=== PATIENT | male | born 1995 | race Caucasian/White ===

== ENCOUNTER → 2019-04-12 09:49 | Outpatient (CLI) | payer OTHER, SELFPAY ==
--- NOTE | 2019-04-12 09:57 | US_ITS ---
STUDY: ABDOMINAL ULTRASOUND - RIGHT UPPER QUADRANT REASON FOR VISIT: Male, 23 years old ELEV LFTS TECHNIQUE: Ultrasound evaluation of the right upper quadrant was performed with real-time and static ramirez-scale imaging. TECHNICAL QUALITY: Limited. Examination limited by bowel gas. COMPARISON: None. FINDINGS: Liver: The liver measures 16.3 cm. There is increased echogenicity consistent with fatty infiltration. The bile ducts are within normal limits. There is hepatic color flow. The direction of portal flow is hepatopetal. There is no demonstrated mass lesion. Gallbladder: Normal distended gallbladder. The gallbladder wall measures 2.0 mm. There is a negative sonographic Ro''s sign. There is no pericholecystic fluid. There is a solitary gallstone measuring 1.6 cm. Common Bile Duct (C.B.D.): The common bile duct measures 3.0 mm. Pancreas: Normal size of the head, body with obscuration of the tail of the pancreas. There is normal echogenicity of the visualized pancreas. There is no demonstrated pancreatic mass or cyst. Right Kidney: Normal size of the right kidney. The right kidney measures 10.7 x 5.5 x 5.8 cm. Normal renal cortex. The right cortex measures 2.0 cm. There is no demonstrated renal mass or cyst. There is no right hydronephrosis. US/Abdomen Limited IMPRESSION: Diffuse fatty liver. Solitary gallstone with no signs of acute cholecystitis. Otherwise normal right upper quadrant ultrasound. Electronically Signed: Caterina Aden MD at 2:41 EST , Service support ,
== END ==
DX: R94.5 Abnormal results of liver function studies (principal)
CPT/HCPCS: 76705

== ENCOUNTER → 2021-03-15 20:00 | Outpatient (CLI) | payer OTHER, SELFPAY | DX: G47.30 Sleep apnea, unspecified (principal) | CPT/HCPCS: 95810 ==

== ENCOUNTER 2021-06-30 15:00 | Emergency (ER) | payer OTHER, SELFPAY ==
[2021-06-30 15:01] VITALS: BP 122/88; PULSE 134; RESP 18; TEMP 36.1; BMI 35.3
--- NOTE | 2021-06-30 16:33 | ED.VIS.GI ---
HPI HPI - GI History of Present Illness Chief Complaint: Nausea/Vomiting/Diarrhea Narrative Narrative: 26-year-old male with no significant medical history presenting with nausea, vomiting, diarrhea since about 530 this morning. Patient notes that he ate some dinner 2 days ago with cheese on it that was melted. He discovered afterwards that it was moldy. He states it is in December 2020. He felt fine yesterday. Today he has had multiple episodes of diarrhea. No black or bloody stools. He has been vomiting. Is not unable to hold on food or fluids. No exotic travel. No recent antibiotic use. Does not drink from [place] or [place]. He does not have merlene abdominal pain but describes cramping. No urinary complaints. [facility] Medical History (Updated 06/30/21 @ 16:29 by Robin Montana) Chronic lower back pain Sleep apnea Home Medications ondansetron 4 mg PO Q8H PRN #14 tab 06/30/21 [Rx Last Taken Unknown] promethazine 25 mg PO QHS PRN #14 tab 06/30/21 [Rx Last Taken Unknown] Allergy/AdvReac Type Severity Reaction Status Date / Time No Known Allergies Allergy Verified 06/30/21 15:04 Surgical History H/O hernia repair History of tonsillectomy Social History Smoking Status: Never smoker ROS ROS ED Constitutional Constitutional ED: Denies chills or fever(s) ENT ENT ED: Denies rhinorrhea or sore throat Cardiovascular Cardiovascular: Denies chest pain or palpitations Respiratory/Chest Respiratory/Chest: Denies cough or dyspnea Gastrointestinal Gastrointestinal: Reports abdominal pain, diarrhea, nausea and vomiting Genitourinary Genitourinary ED: Denies dysuria or hematuria Musculoskeletal Musculoskeletal: Denies arthralgias or myalgias Integumentary Denies rash Neurologic Neurologic: Denies headache(s) or paresthesias Psychiatric Psychiatric: Denies anxiety or depression EXAM Physical Exam Const Vital Signs: 06/30/21 15:01 06/30/21 18:50 06/30/21 20:00 Temperature 97.0 F L Temperature Source Temporal Pulse Rate 134 H 66 Respiratory Rate 18 18 16 Blood Pressure 122/88 H 122/78 H Blood Pressure Mean 99 92 Pulse Ox 98 Oxygen Delivery Method Room Air Positive well nourished General Appearance ED: NAD; Negative for pallor HEENT Reports moist mucous membranes normocephalic and atraumatic Eyes PERRL and EOMs intact bilaterally General Eye ED: Negative for pale conjunctiva or scleral icterus Neck supple Resp normal respiratory effort and clear to auscultation bilaterally Cardio regular rate and regular rhythm Neuro Sensorium / Orientation: alert, oriented to person and oriented to place Psych mental status grossly normal Skin General Skin Exam: Negative for jaundice or pallor Lesions: no lesions Rashes: no rashes MDM MDM MDM Narrative Medical decision making narrative: Patient given Zofran, Pepcid, 2 L of IV fluids. He is reevaluated at 1900 and has had some episodes of diarrhea but no more vomiting. Lab work is obtained and shows no leukocytosis. Hemoglobin slightly hemoconcentrated. Patient CBC shows no leukocytosis. He is lymphopenic. Creatinine slightly elevated 1.35 there is no comparison. ALT slightly elevated at 75 otherwise LFTs are normal. Patient reevaluated not having any more nausea or vomiting but is having diarrhea still. I will send for stool studies. 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 Covid testing and stool studies are pending. I do not believe he has C. difficile with a low white blood cell count. I did not test for this. Patient given Phenergan and Zofran for home. He feels well enough and well-hydrated at this point. He will follow up the results of his tests on the patient portal. Patient given return precautions. Impression: 1. Nausea/vomiting 2. Diarrhea 3. Possible food poisoning 4. Gastroenteritis Lab Data Attestation: I reviewed the patient's lab results. Labs: Laboratory Results - last 24 hr 06/30/21 06/30/21 16:35 16:35 WBC 8.4 RBC 5.45 Hgb 16.6 H Hct 46.8 MCV 85.9 MCH 30.5 MCHC 35.5 RDW Std Deviation 37.9 RDW Coeff of Anny 12.2 Plt Count 232 MPV 10.3 Immature Gran % (Auto) 0.100 Neut % (Auto) 86.3 H Lymph % (Auto) 6.5 L Shannon % (Auto) 6.6 Eos % (Auto) 0.4 Baso % (Auto) 0.1 Absolute Neuts (auto) 7.3 Absolute Lymphs (auto) 0.55 L Nucleated RBC % 0 Differential Comment SCANNED Sodium 133 L Potassium 4.1 Chloride 104 Carbon Dioxide 22.0 Anion Gap 7 BUN 18 Creatinine 1.35 H Estim Creat Clear Calc 87.54 Est GFR (MDRD) Af Amer 82 Est GFR (MDRD) Non-Af 67 BUN/Creatinine Ratio 13.3 Glucose 129 H Calcium 9.7 Total Bilirubin 0.80 AST 27 ALT 75 H Alkaline Phosphatase 104 Total Protein 8.1 Albumin 4.2 Globulin 3.9 Albumin/Globulin Ratio 1.1 Discharge Plan Triage Chief Complaint: Nausea/Vomiting/Diarrhea ED Provider: Jelani Griffin Dx/Rx/DC Orders Instructions: ED Food Poison Or Gastroenteritis Prescriptions: New promethazine 25 mg tablet 25 mg PO QHS PRN (Reason: nausea and vomiting) Qty: 14 RF: 0 ondansetron 4 mg tablet,disintegrating 4 mg PO Q8H PRN (Reason: nausea and vomiting) Qty: 14 RF: 0 Primary Care Provider: Elijah Street Referrals: Elijah Street MD [Primary Care Provider] - Disposition Disposition: Home, Self Care
[2021-06-30] MEDS: Ondansetron 4 MG/2 ML Vial IV (16:36)
[2021-06-30 16:44] LABS: Absolute Lymphocyte Count 0.55 X10^3/uL (0.83-4.51); Absolute Neutrophil Count 7.3 X10^3/uL (2.0-7.7); Basophil# 0.01 X10^3/uL; Basophil% 0.1 % (0-1); Eosinophil# 0.03 X10^3/uL; Eosinophils% 0.4 % (0-5); Hematocrit 46.8 % (40-54); Hemoglobin 16.6 g/dL (13.0-16.5); Lymphocyte # 0.55 X10^3/ul (0.83-4.51); Lymphocyte % 6.5 % (19-41); Mean Corp Hgb Conc 35.5 g/dL (32-36); Mean Corpuscular Hgb 30.5 pg (27.0-32.0); Mean Corpuscular Volume 85.9 fL (80-94); Mean Platelet Vol. 10.3 fl (6.2-12.0); Monocyte# 0.56 X10^3/uL; Monocyte% 6.6 % (0-10); NRBC Flagged by Analyzer 0 % (0-5); Neutrophil # 7.28 X10^3/uL (2.7-7.7); Neutrophil % 86.3 % (47-70); POSITIVE DIFFERENTIAL YES; Platelet Count 232 K/mm3 (150-450); RBC Distribution Width CV 12.2 % (11.6-14.6); RBC Distribution Width SD 37.9 fl (35.1-43.9); Red Blood Count 5.45 M/mm3 (4.6-6.2); White Blood Count 8.4 K/mm3 (4.4-11.0)
[2021-06-30] MEDS: 0.9% Normal Saline 1,000 ML 999 ML IV ×2 (16:46→18:16)
[2021-06-30] MEDS: Famotidine 200 MG/20 ML MDV 20 MG in 0.9% Normal Saline (Pres. free 8 ML 300 MG IV (16:47)
[2021-06-30 16:57] LABS: Differential Indicated SCAN CRITERIA MET
[2021-06-30 17:01] LABS: ALB/GLOB Ratio 1.1 RATIO (0.9-2.4); AST(SGOT) 27 U/L (15-37); Alanine Aminotransfer ALT/SGPT 75 U/L (16-61); Albumin, Serum 4.2 g/dL (3.2-5.0); Alkaline Phosphatase 104 U/L (45-117); Anion Gap 7 (5-15); BUN 18 mg/dL (7-18); BUN/Creat Ratio 13.3 RATIO (10-20); Calcium,Total 9.7 mg/dL (8.5-10.1); Chloride 104 mmol/L (98-107); Creatinine, Serum 1.35 mg/dL (0.70-1.30); EST Glomerular Filtration Rate 67 mL/min (>60); Est Glom Filt Rate - Afr Amer 82 mL/min (>60); Estimated Creatinine Clearance 87.54 ml/min; Globulin 3.9 g/dL (2.2-4.2); Glucose 129 mg/dL (74-106); Potassium 4.1 mmol/L (3.5-5.1); Protein, Total 8.1 g/dL (6.4-8.2); Sodium Level 133 mmol/L (136-145)
[2021-06-30 17:48] LABS: Differential Comment SCANNED
[2021-06-30 18:50] VITALS: RESP 18
[2021-06-30 20:00] VITALS: BP 122/78; PULSE 66; RESP 16; O2SAT 98
--- NOTE | 2021-07-01 10:05 | ED.RN ---
LEFT MESSAGE FOR PT TO CALL ER
--- NOTE | 2021-07-01 11:37 | ED.RN ---
PT UPDATED ON LAB RESULTS
== END 2021-06-30 21:29 | disposition home or self-care (01) ==
PROVIDERS: Emergency Provider Student in an Organized Health Care Education/Training Program; PCP Family Medicine; Visit Provider Student in an Organized Health Care Education/Training Program
DX: K52.9 Noninfective gastroenteritis and colitis, unspecified (principal); R11.2 Nausea with vomiting, unspecified; R19.7 Diarrhea, unspecified; G89.29 Other chronic pain; M54.50 Low back pain, unspecified; G47.30 Sleep apnea, unspecified
CPT/HCPCS: 80053; 85025; 87506; 87635; 96361; 96365; 96366; 96375; 99283; J7030; A4216; J2405; J3490; U0003; U0005

== ENCOUNTER → 2024-05-16 | Outpatient (CLI) | payer BC, SELFPAY ==
--- NOTE | 2024-05-16 16:20 | RAD_ITS ---
PROCEDURE: LUMBAR SPINE 2 OR 3 VIEWS REASON FOR EXAM: Back pain TECHNIQUE: 2 view(s) of the lumbar spine COMPARISON: None. FINDINGS: Normal lumbar vertebral heights. No evidence of fracture. Disc space heights are preserved. Normal alignment. No spondylolisthesis. RAD/Lumbar Spine 2 or 3 Views IMPRESSION: NEGATIVE LUMBAR SPINE. Reading Location: [facility]
== END | disposition home or self-care (01) ==
LOC: MTRAD 16:18
PROVIDERS: PCP Family Medicine; Referring Provider Family Medicine; Visit Provider Family Medicine
DX: M54.9 Dorsalgia, unspecified (principal)
CPT/HCPCS: 72100

== ENCOUNTER 2024-07-04 11:30 | Outpatient (RCR) | payer BC, SELFPAY ==
--- NOTE | 2024-06-13 13:51 | HP.PTEVAL ---
Patient's Visit Information Visit Information Visit Information: PERCY NOLAN is a 29 year old M referred to Physical Therapy by Dr. Elijah Street MD with a diagnosis of BACK PAIN WITH LEFT SIDE RADICULAR PAIN. Date of Evaluation: 06/13/24 Physical Therapist: Justin Weller, PT, Cert MDT, OCS Visit Plan Frequency: 2x /Week Duration: 4 Weeks Plan: PLAN FOR MRI JUNE 24 PT INTERVENTIONS FOCUS ON DLS ,POSTURAL EX'S , LE FLEXABILITY ,POSTURE/BODY MECHANICS AND MODALITIES FOR PAIN Subjective Subjective: This 29 y/o male presents to physical therapy with lumbar radiculopathy left side. Patient has had symptoms 2013. Patient symptoms worse with in leg leg before . Patient had h/o left foot drop. Seen DR James x-rays showed DDD,L4-5 . No MRI ,plan for MRI June 24. Tried PT in past , Change lifestyle loss weight and ergonomically. Location of pain left side. Aggravating standing immediately after sitting ,walking ,bending lifting . Alleviation factors rest. C/O paresthesia/tingling left leg. Overall left leg feels weak. Coughing/sneezing -. Bowel /bladder-. Patient sleeping good. Patient has had no pain management ,. Medication : gabapentin. Patient condition affects QOL and function. Patient goals to have no pain. SOCIAL: VOCATION: RN [employer] Pain Left Back: Pain Intensity (Out of 10): 2 Pain Intensity Range: 10 Objective Objective: POSTURE: WFL PALPATION: tender LS NEURO: c/o paresthesia/tingling left leg when standing ,reflexes L3-4,L4-5 ,L5-S1 1/3 LEFT ,RIGHT 2/3 FLEXABILITY: hamstrings min tight/mod tight GAIT: reciprocal pattern LUMBAR ROM: flexion min villar pain ,extension mod loss pain ,side glides left mod loss pain ,right min loss MMT:quads/hams/hip ankle 4/5 Special Tests L/S Slump test left side: Negative L/S Slump test right side: Negative L/S Left Straight Leg Raise: Negative L/S Right Straight Leg Raise: Negative Lumbar Standing: Flexion - Mechanical Response: No effect Lumbar Standing: Flexion - Symptoms During Testing: Increases Lumbar Standing: Flexion - Symptoms After Testing: Worse Lumbar Standing: Extension - Mechanical Response: No effect Lumbar Standing: Extension - Symptoms During Testing: Increases Lumbar Standing: Extension - Symptoms After Testing: Worse Lumbar Standing: Right Side Glides - Mechanical Response: No effect Lumbar Standing: Right Side [place] - Symptoms During Testing: No effect Lumbar Standing: Left Side [place] - Mechanical Response: No effect Lumbar Standing: Left Side [place] - Symptoms During Testing: Increases Lumbar Standing: Left Side [place] - Symptoms After Testing: Worse Lumbar Lying: Flexion - Mechanical Response: No effect Lumbar Lying: Flexion - Symptoms During Testing: Increases Lumbar Lying: Flexion - Symptoms After Testing: Worse Lumbar Lying: Extension - Mechanical Response: No effect Lumbar Lying: Extension - Symptoms During Testing: Increases Lumbar Lying: Extension - Symptoms After Testing: Worse Comments:: all motions stays centralized and to left Balance/Special Test Scores Oswestry Low Back Score: 15 Goals Goal 1:: Patient to be I with HEP for back Goal Time Frame: 4-6 Weeks Goal 2:: Patient to improve lumbar ROM for function of recovery for job demands and ADLS Goal Time Frame: 4-6 Weeks Goal 3:: Patient to improve back oswestry by 5 points to improve QOL and function Goal Time Frame: 4-6 Weeks Goal 4:: Patient to improve posture/body mechanics for job demands 80% of the time. Goal Time Frame: 4-6 Weeks Rehabilitation Potential Physical Therapy Diagnosis: This patient has lumbar radicular symptoms with derranagement with possible left foraminal stenosis with pain with positioning standing walking and no motion testing decreases symptoms worse with extension some better sitting thus benefit from skilled PT Rehabilitation Potential: Good Anticipated Interventions Patient/Client Instruction: Educate patient on: Condition and Plan of Care For the Purpose of:: To decrease pain, To increase ROM, To improve muscle performance and motor function, To improve ability to perform ADL's, To increase tolerance to activity/condition/position, To improve ability of physical actions for home/community/work/leisure, To improve health of tissue, To decrease soft tissue restriction, To increase flexibility/ROM, To reduce risk of recurrence and To prevent re-injury Therapeutic Exercise to Include: Strength training, Postural training, Flexibilty training, Dynamic Lumbar Stabilization and Wang Exercises For the Purpose of:: To decrease pain, To increase ROM, To improve ability to perform ADL's, To increase tolerance to activity/condition/position, To improve ability of physical actions for home/community/work/leisure, To improve health of tissue, To decrease soft tissue restriction, To increase flexibility/ROM, To reduce risk of recurrence, To prevent re-injury and To improve tolerance to ADL's TENS: Yes IF ES: Yes Cryotherapy (ice pack, ice massage): Yes Thermo therapy (hot pack): Yes Ultrasound (thermal/non thermal): Yes For the Purpose of:: To decrease pain, To increase ROM, To improve nutrient delivery to tissue, To increase oxygenation perfusion, To improve health of tissue and To decrease soft tissue restriction Text: Thank you for the opportunity to evaluate your patient. For Medicare and Medicare HMO plans, please review the plan of care and approve it. It will need to be FAXED BACK to us at [phone] for Medicare purposes. For Medicare only, by signing this I certify the plan of care. Please let me know if there are questions or concerns regarding this plan of care. Physician Signature: Date:
== END 2024-07-04 19:00 | disposition home or self-care (01) ==
LOC: PT 11:30
PROVIDERS: PCP Family Medicine; Referring Provider Family Medicine; Visit Provider Family Medicine
DX: M54.10 Radiculopathy, site unspecified (principal)
CPT/HCPCS: 97110; 97162; 97530

== ENCOUNTER → 2024-08-04 | Outpatient (CLI) | payer BC, SELFPAY ==
--- NOTE | 2024-08-04 10:00 | MRI_ITS ---
PROCEDURE: SPINE LUMBAR (ROUTINE) 08/04/2024 REASON FOR EXAM: PARESTHESIA OF LT FOOT TECHNIQUE: Multiplanar and multisequence images were obtained without IV contrast administration. FINDINGS: Normal lumbar vertebral body height and alignment. The marrow signal is within normal limits. There is no compression deformity. There is no impingement of the conus. No paravertebral masses. The abdominal aorta exhibits normal caliber. T12-L1 and L1-L2 are unremarkable. L2-3 within normal limits At L3-4 disc dehydration and concentric bulge results in mild acquired spinal stenosis. At L4-5 moderate spinal stenosis from central protrusion which asymmetrically narrows the left lateral recess and encroaches on the left L5 nerve root sleeve as it exits the thecal sac. L5-S1 unremarkable MRI/Spine Lumbar (Routine) IMPRESSION: Dominant finding at L4-5 is of moderate spinal stenosis from a left central and paracentral disc extrusion with left L5 nerve root impingement. Reading Location: [facility]
== END | disposition home or self-care (01) ==
PROVIDERS: PCP Family Medicine; Referring Provider Family Medicine; Visit Provider Family Medicine
DX: M54.9 Dorsalgia, unspecified (principal); R20.2 Paresthesia of skin
CPT/HCPCS: 72148

== ENCOUNTER 2024-09-12 16:30 | Outpatient (RCR) | payer OTHER, BC, SELFPAY ==
--- NOTE | 2024-08-05 12:57 | HP.PTEVAL ---
Patient's Visit Information Visit Information Visit Information: PERCY NOLAN is a 29 year old M referred to Physical Therapy by HUY NICE with a diagnosis of Lumbar radiculopathy. Date of Evaluation: 08/04/24 Physical Therapist: Matty Blanchard DPT Visit Plan Frequency: 2x /Week Duration: 6 Weeks Plan: In aquatic settin) slight but progressive ROM of lumbar spine, Add in nerve glides of LLE 2) hip and core strengthening in neutral spine HEP at IE: prone lying and prone prop. This was beneficial with standing after extension, but increased extension was too much and resulted in increased symptoms. Subjective Subjective: Pt is here today for his initial evaluation with diagnosis of lumbar radiculopathy. Pt. reports having issues since he left the ~8 years ago. He has had intermittent symptoms since. Pt. reports that the last 6 months have been worse. Pt. pain is currently in his L side of lumbar spine and down his L leg to his foot. Pt. reports N/T in the same region. Pt. reports sitting is better than standing. Standing for more the 3-5 minutes result in increased symptoms. Pt. came for therapy and they did some core stability, but did not effect his symptoms. He did have an MRI earlier today, but results are not in yet. Pt. reports that his L foot will catch some times, causing him to trip, especially after standing for longer periods of time. Pain Lumbar spine: Pain Intensity (Out of 10): 4 Pain Intensity Range: 3 and 8 Objective Objective: POSTURE: Pt. has fairly normal posture in stance. Pt. has no marked lateral shift noted. PALPATION: Pt. has increased tenderness at L3-L5, marked hypomobility noted as well. This did not result in any radicular symptoms, but did cause increased back pain. NEURO: Pt. has normal sensation in BLEs. Pt. has some tingling in his L distal LEs, but did not effect sensation. Pt. has normal DTR of BLEs. Pt. is able to rise on heels and toes without issues. ROM: LUMBAR SPINE: flexion full motion no increase in symptoms, increased pain upon returning. Ext mod loss increase NW, SB nil loss NE, rotation nil loss no effect bilat. Pt. has tightness in B HS, normal B hip ROM noted. MMT: RLE: ankle 5/5 throughout; knee: ext 58.7#, flexion 31.8#; hip: flex 56.3#, abd 29.4# LLE: ankle 5/5 throughout; knee: ext 51.1#, flexion 21.9#; hip: flexion 31.8#, and 22.9#. GAIT: Pt. has fairly normal gait pattern. Increased pain with increased walking, ~300' resulted in increased LLE symptoms (mostly N/T) STAIRS: normal. Special Tests L/S Slump test left side: Positive L/S Slump test right side: Negative L/S Left Straight Leg Raise: Negative L/S Right Straight Leg Raise: Negative Lumbar Standing: Flexion - Mechanical Response: No effect Lumbar Standing: Flexion - Symptoms During Testing: No effect Lumbar Standing: Flexion - Symptoms After Testing: No effect Lumbar Standing: Extension - Mechanical Response: No effect Lumbar Standing: Extension - Symptoms During Testing: Increases Lumbar Standing: Extension - Symptoms After Testing: No better Lumbar Standing: Right Side Glides - Mechanical Response: No effect Lumbar Standing: Right Side [place] - Symptoms During Testing: No effect Lumbar Standing: Right Side [place] - Symptoms After Testing: No effect Lumbar Standing: Left Side [place] - Mechanical Response: No effect Lumbar Standing: Left Side [place] - Symptoms After Testing: No effect Lumbar Lying: Flexion - Mechanical Response: No effect Lumbar Lying: Flexion - Symptoms During Testing: No effect Lumbar Lying: Flexion - Symptoms After Testing: No effect Lumbar Lying: Extension - Mechanical Response: No effect Lumbar Lying: Extension - Symptoms During Testing: Decreases Lumbar Lying: Extension - Symptoms After Testing: Better Balance/Special Test Scores Oswestry Low Back Score: 24 Goals Goal 1:: LTG: pt. to be I with HEP. Goal Time Frame: 4-6 Weeks Goal 2:: STG: Pt. to have increased lumbar ROM to full without increase in symptoms. Goal Time Frame: 2 Weeks Goal 3:: LTG: pt. to be able to stand and walk for 30' without increase in LLE symptoms. Goal Time Frame: 4-6 Weeks Goal 4:: LTG: Pt. to have full strength throughout core and BLEs. Goal Time Frame: 4-6 Weeks Rehabilitation Potential Physical Therapy Diagnosis: Pt. has signs and symptoms consistent with lumbar radiculopathy with LLE symptoms. Pt. has marked slump test on L side. Pt. did have some relief with prone lying and prone prop, but worse with REIL. Pt. would benefit from PT in aquatic setting to slowly progress ROM and eventual core stability. Rehabilitation Potential: Good Anticipated Interventions Patient/Client Instruction: Educate patient on: Condition, Plan of Care, Risk Factors and Benefits of Fitness Program For the Purpose of:: To improve decision making, To facilitate caregiver knowledge, To improve self management, To prevent re-injury and To improve ability to perform tasks related to life management Therapeutic Exercise to Include: Strength training, Postural training, Flexibilty training, "In an aquatic setting", Dynamic Lumbar Stabilization and Wang Exercises For the Purpose of:: To decrease pain, To decrease swelling/inflammation, To increase ROM, To improve nutrient delivery to tissue, To increase oxygenation perfusion, To improve muscle performance and motor function, To improve ability to perform ADL's and To increase tolerance to activity/condition/position Text: Thank you for the opportunity to evaluate your patient. For Medicare and Medicare HMO plans, please review the plan of care and approve it. It will need to be FAXED BACK to us at [phone] for Medicare purposes. For Medicare only, by signing this I certify the plan of care. Please let me know if there are questions or concerns regarding this plan of care. Physician Signature: Date:
== END 2024-09-12 19:00 | disposition home or self-care (01) ==
LOC: PT 16:30
PROVIDERS: PCP Family Medicine
DX: M54.16 Radiculopathy, lumbar region (principal)
CPT/HCPCS: 97113; 97161